=== PATIENT | female | born 1940 | race Caucasian/White ===

== ENCOUNTER 2019-06-23 08:21 | Day surgery (SDC) | payer MEDICARE, OTHER, SELFPAY ==
[2019-06-23] VITALS (7 sets, daily range): BP systolic 134–193; BP diastolic 64–91; PULSE 48–63; RESP 6–17; TEMP 36.2–36.7; O2SAT 96–100; BMI 21.2
[2019-06-23] MEDS: LACTATED RINGERS 1,000 ML 42 ML IV (08:49)
--- NOTE | 2019-06-23 09:41 | PM.HP.1 ---
History of Present Illness History of Present Illness Date Patient Seen: 06/23/19 Time Patient Seen: 09:41 Chief complaint: [id number] Narrative: Patient is a 79-year-old with a right ovarian cyst and endometrial hyperplasia She is here for a laparoscopic bilateral salpingo-oophorectomy, D&C hysteroscopy, IUD placement Patient History Medical History (Updated 06/17/19 @ 15:18 by Lizzy Conteh RN) Glaucoma (Acute) Ovarian cyst (Chronic ~04/2019) Scoliosis (Chronic) Skin cancer, basal cell (Chronic ~11/2011) Surgical History (Updated 05/25/19 @ 21:20 by Harriet Rooney) Anesthesia (Resolved) History of surgery (Resolved ~08/08/18) Laceration of left eyebrow (Resolved) Status post tubal ligation Family & Social History Social History: household members spouse Tobacco & Substance use: Smoking Status Never smoker Substance Use Type does not use Meds Home Medications and Allergies Home Medications Medication Instructions Recorded Confirmed Type lisinopril 20 mg PO QAM #90 tab 11/13/16 06/23/19 Rx latanoprost 0.005 % eye drops 1 drp EYE-BOTH .HS ml 05/22/19 06/23/19 History Allergies Allergy/AdvReac Type Severity Reaction Status Date / Time No Known Allergies Allergy Uncoded 06/23/19 08:39 Exam Vital Signs (past 8 hours): - 06/23/19 08:53 Temperature 97.1 F L Pulse Rate 63 Respiratory Rate 6 L Blood Pressure 193/91 H Pulse Oximetry 100 Oxygen Delivery Method Room Air Narrative Exam Narrative: HEENT: No thyromegaly, no anterior cervical or supraclavicular lymphadenopathy. Lungs:Clear to auscultation bilaterally, no wheezes. Cardiovascular: Regular rate and rhythm, no murmurs, rubs, or gallops. Abdomen: Well-healed scars. No hepatosplenomegaly. No masses palpable. External genitalia: Normal Vagina: Normal Cervix: Normal Bimanual exam: 6 Week size uterus. Mobile. Rectal: No masses. Assessment & Plan Assessment & Plan narrative: Assessment: 79-year-old with a right ovarian cyst and endometrial hyperplasia On unopposed estrogen Plan: Laparoscopic bilateral salpingo-oophorectomy D&C hysteroscopy Kyleena IUD placement for progesterone Time Spent With Patient Time with patient: 15-24 minutes
--- NOTE | 2019-06-23 10:34 | SUR.OPER ---
Lithotomy on padded OR bed, head on pillow, arms secured on padded arm boards at <90 degrees abduction. Legs secured in padded yellow fins stirrups.
--- NOTE | 2019-06-30 07:00 | PM.GYNOP.1 ---
Operative Date/Time/Diagnoses Date of procedure: 06/23/19 Time of procedure: 10:45 Pre-op diagnosis: Right ovarian cyst Endometrial hyperplasia Post-op diagnosis: same Procedure & Clinicians Procedure: Procedures Operation Date: 06/23/19 09:45 Actual Procedures Side Surgeon p Attempted dilation of the cervix Bilateral Glenna Chaudhary MD Indications: Endometrial hyperplasia Right ovarian cyst Surgeon: Glenna Chaudhary Anesthesia Type: General Operative Notes Findings: Vaginal agglutination Cervical stenosis Closure Type: not applicable Specimen(s): none Estimated blood loss (mL): 5 Blood products transfused: none Procedure in detail: After informed consent was obtained, the patient was taken to the operating room where she was placed in the dorsal supine position. After adequate general endotracheal anesthesia was achieved, she was placed in the dorsal lithotomy position, and prepped and draped in the usual sterile fashion. A bivalve speculum was placed into the vagina. There was found to be significant agglutination of the vaginal carcamo near the cervix. The cervix could not be readily identified. An attempt was made to take down the agglutination, but was unsuccessful. A decision was made to abort the procedure, as it was unsafe to attempt to dilate the cervix. The bivalve speculum was removed from the vagina. Sponge, lap, and instrument counts were correct x2. The patient tolerated the procedure well, and was taken to PACU in stable condition. Complications: none Post-operative Disposition: PACU Plan for aftercare: Home after recovery
== END 2019-06-23 12:01 | disposition home or self-care (01) ==
PROVIDERS: PCP Family Medicine; Visit Provider Obstetrics & Gynecology
PROC: 0UT24ZZ Resection of Bilateral Ovaries, Percutaneous Endoscopic Approach (ICD-10-PCS; CPT 58661; principal; 2019-06-23 09:45)
DX: N83.201 Unspecified ovarian cyst, right side (principal); I10 Essential (primary) hypertension; N85.00 Endometrial hyperplasia, unspecified; Z53.09 Procedure and treatment not carried out because of other contraindication; N90.89 Other specified noninflammatory disorders of vulva and perineum
CPT/HCPCS: 58120; J1100; J1885; J2405; J2704; J3010

== ENCOUNTER 2019-08-11 08:11 | Day surgery (SDC) | payer MEDICARE, OTHER, SELFPAY ==
[2019-08-11] VITALS (8 sets, daily range): BP systolic 141–188; BP diastolic 56–86; PULSE 51–69; RESP 10–16; TEMP 36.1–36.6; O2SAT 94–97; BMI 21.1
--- NOTE | 2019-08-11 | PATH_ITS ---
[facility] Accession Number: [id number] . 01 Material submitted: . uterus - UTERUS, BILATERAL FALLOPIAN TUBES AND BILATERAL OVARIES . 02 Diagnosis: Uterus, Bilateral Fallopian Tubes and Bilateral Ovaries, Hysterectomy, Bilateral Salpingo-oophorectomy: 1. Benign endometrial polyp. 2. One fallopian tube with endosalpingiosis. 3. Uterus, bilateral fallopian tubes and bilateral ovaries with no evidence of neoplasia or hyperplasia. V 08/13/2019 1445 Local . 02 Electronically signed: . Gregoria Wilson MD, Pathologist NPI- [id number] . 01 Gross description: . Received in formalin, labeled uterus, jessica tubes + jessica ovaries, is a morcellated uterus (84 grams, 12.3 x 8.5 x 5.0 cm in aggregate), two ovaries (ovary #1-2.0 x 1.5 x 0.5 cm; ovary #2-2.3 x 1.4 x 0.5 cm), and two fimbriated fallopian tubes (tube #1: length-2.2 cm, diameter-0.3 cm; tube #2: length-2.7 cm, diameter-0.4 cm). The cervix is absent. The specimen cannot be oriented and the endometrium and myometrium cannot be grossly measured. An irregular srinivasan-white thickened rubbery irregular area (1.0 x 0.7 x 0.3 cm) is identified apparently involving the endometrium. The remaining parenchyma is alexander and unremarkable. The serosa is alexander, smooth and shiny. The ovaries have alexander-yellow, smooth, shiny flat serosa and alexander-white parenchyma with corpus albicans identified. The fallopian tubes have alexander smooth shiny serosa and alexander unremarkable lumens. Section code: (A1-A4) uterine parenchyma, irregular area entirely submitted in cassette A1; (A5) ovary #1, customer account representative serial sections; (A6) ovary #2, customer account representative serial sections; (A7) fallopian tube #1, serially sectioned, entirely submitted; (A8) fimbria #1, submitted intact; (A9) fallopian tube #2, customer account representative serial sections; (A10) fimbria #2, bivalved, entirely submitted. ([id number]) /MRV 08/12/2019 1313 Local . 02 Pathologist provided ICD-10: N84.0 . 02 CPT . 659697 Performed at: 01 [facility] [address] [facility], [place], [place] [id number] MD Shane Trammell MD Phone: [phone] Performed at: 02 [facility] [address] [place], [place] [id number] MD Gregoria Wilson MD Phone: [phone]
[2019-08-11] MEDS: LACTATED RINGERS 1,000 ML 100 ML IV (08:47)
--- NOTE | 2019-08-11 09:17 | PM.PREOP ---
Pre-operative Note Interval Note History & Physical reviewed/Exam performed by Physician: Yes Changes to H&P: No
[2019-08-11] MEDS: CEFAZOLIN 2 GM/100 ML FROZ.PIGGY IV (09:45)
--- NOTE | 2019-08-11 10:25 | SUR.OPER ---
Lithotomy on padded OR bed. Island Pad Positioner under torso. Head on pillow, arms padded and tucked at sides. Legs secured in padded yellow fins stirrups.
[2019-08-11] MEDS: ROPIVACAINE 0.2% PF 2 MG/ML 10ML AMP 10 ML INJ (10:42)
[2019-08-11] MEDS: BUPIVACAINE 0.5% W/ EPI (PF) 10 ML VIAL INJ (10:44)
--- NOTE | 2019-08-11 13:10 | SUR.PHASEII ---
3 out of 4 puncture sites with increased drainage noted. Dressing removed gauze placed and sites covered with new tegaderms
--- NOTE | 2019-08-11 18:38 | P.OP_ITS ---
Operative Date/Time/Diagnoses Date of procedure: 08/11/19 Time of procedure: 11:00 Pre-op diagnosis: Endometrial thickening Cervical stenosis Unable to sample endometrium in the office or with D&C hysteroscopy Post-op diagnosis: same Procedure & Clinicians Procedure: Procedures Operation Date: 08/11/19 09:45 Actual Procedures Side Surgeon p Laparoscopic Supracervical Hysterectomy W/ Bilateral Salpingo-oophorectomy Glenna Chaudhary MD Indications: Endometrial thickening Cervical stenosis Unable to sample endometrium in the office or at D&C hysteroscopy Surgeon: Glenna Chaudhary Delivery Room Supervisor: Hazel Cid Anesthesia Type: General Operative Notes Findings: Five week size uterus Cervical stenosis Normal tubes and ovaries Normal liver, gallbladder, and appendix Closure Type: primary Specimen(s): left tube & ovary, right tube & ovary and uterus Applied: catheter (Removed at the end of the case) Estimated blood loss (mL): 50 Blood products transfused: none Procedure in detail: The patient was taken to the operating room where she was placed in the dorsal supine position. After adequate general endotracheal anesthesia was achieved, she was placed in the dorsal lithotomy position, and prepped and draped in the usual sterile fashion. A timeout was performed. A bivalve speculum was placed into the vagina. The cervix was very stenotic and the os was not visualized. A decision was made to put a moistened sponge stick into the vagina and skip the Zumi uterine manipulator. The bivalve speculum was removed from the vagina. Attention was then turned to the abdomen where 6 mL of half percent Marcaine with epinephrine were injected in the umbilical fold. A 5 mm incision was made. The veress needle was placed into the peritoneal cavity, and its placement confirmed by aspiration and drop test. The veress needle was removed. A 5 mm trocar was placed without difficulty. 2 other incisions were made midway between the pubic symphysis and umbilicus after 5 mL of half percent Marcaine with epinephrine were injected. These were 5 mm incisions. Two, 5 mm trocars were placed under direct visualization. The right tube and ovary were grasped with an atraumatic grasper. Using the plasma kinetic with settings of 40 W the infundibulopelvic ligament was cauterized and cut. The cornua of the uterus was then grasped with an atraumatic grasper. The utero-ovarian ligaments were cauterized and cut. The round ligament and broad ligament were cauterized and cut with plasma kinetic. Hemostasis was achieved. The bladder flap was created using the plasma kinetic with cautery and cut [facility] across. The uterine arteries on the right side were extensively cauterized with plasma kinetic. All of this was repeated on the left side. The remainder of the bladder flap was created using the plasma kinetic, and the bladder taken down off the lower uterine segment and cervix. Using the Linaloop, the cervix was amputated from the uterus 2 cm above the uterosacral ligaments. There was a small amount of bleeding noted from the posterior edge of the cervix, and this was cauterized for hemostasis. The endocervical canal was extensively cauterized with the PlasmaKinetic. 6 mL of half percent Marcaine with epinephrine were injected above the pubic symphysis. A 12mm incision was made. A 12 mm trocar was placed under direct visualization. The trocar was removed. The fascial incision was extended bluntly with a Rahul. An Endobag was placed through the suprapubic incision and the uterus, tubes, and ovaries were placed into the Endobag. The edges of the endobag were brought through the incision. An Lobo was placed into the endobag. The uterus was grasped with a Rahul. The uterus was morcellated in approximately 5 pieces. The tubes and ovaries were also removed from the Endobag. The Endobag was removed from the peritoneal cavity. The pelvis was copiously irrigated with warm normal saline. No bleeding was noted. 20 mL of 0.2% ropivacaine were placed over the pelvic pedicles. The instruments were removed from the abdomen. The CO2 was allowed to escape. The suprapubic incision was closed on the fascia with 0 Vicryl. All of the incisions were closed with 4-0 Biosyn in a subcuticular fashion. Steri strips, 2x2's and op sites were placed over the incisions. The moistened sponge stick was removed from the vagina. Sponge, lap, and instrument counts were correct x 2. The patient tolerated the procedure well, was taken to PACU in stable condition. Complications: none Post-operative Condition: stable Disposition: PACU Plan for aftercare: Home after recovery
== END 2019-08-11 12:50 | disposition home or self-care (01) ==
LOC: OR 08:13 → AC 11:38
PROVIDERS: PCP Family Medicine; Visit Provider Obstetrics & Gynecology
PROC: 0UT94ZL Resection of Uterus, Supracervical, Percutaneous Endoscopic Approach (ICD-10-PCS; CPT 58542; principal; 2019-08-11 09:45)
DX: N84.0 Polyp of corpus uteri (principal); N88.2 Stricture and stenosis of cervix uteri; I10 Essential (primary) hypertension; N94.89 Other specified conditions associated with female genital organs and menstrual cycle
CPT/HCPCS: 58542; J0690; J1100; J1885; J2405; J2704; J2795; J3010

== ENCOUNTER → 2021-05-27 12:48 | Outpatient (CLI) | payer MEDICARE, OTHER, SELFPAY ==
[2021-05-27 18:45] LABS: Eosinophils Absolute Auto 200 /uL (0-450); Mean Corpuscular Hemoglobin 21.7 PG (26-34)
[2021-05-27 18:54] LABS: Alanine Aminotransferase 19 IU/L (<35); Albumin 4.6 g/dL (3.5-5.0); Albumin Globulin Ratio 1.5 (1.0-2.8); Alkaline Phosphatase 81 U/L (38-126); Aspartate Aminotransferase 33 IU/L (14-36); BUN Creatinine Ratio 23.1 (6-22); Bilirubin Total 0.4 mg/dL (0.2-1.3); Blood Urea Nitrogen 15 mg/dL (7-17); Calcium 9.7 mg/dL (8.4-10.2); Carbon Dioxide 31 mmol/L (22-32); Chloride 94 mmol/L (98-107); Estimated Glomerular Filt Rate > 60.0 mL/min (>60); Glucose 92 mg/dL (80-110); HEMOLYSIS < 15 (0-50); Sodium 132 mmol/L (137-145); Total Protein 7.6 g/dL (6.3-8.2)
[2021-05-27 19:12] LABS: Add Manual Diff / Slide Review NO; Basophils Absolute Auto 200 /uL (0-100); Basophils Percent Auto 2.1 % (0-2); Eosinophils Percent Auto 2.1 % (2-4); Lymphocytes Absolute Auto 1600 /uL (1100-4500); Mean Corpuscular HGB Conc 32.6 % (30-36); Mean Corpuscular Volume 66.4 fL (80-100); Monocytes Absolute Auto 1100 /uL (0-900); Monocytes Percent Auto 13.6 % (3-14); Neutrophils Absolute Auto 4900 /uL (1500-7000); Neutrophils Percent Auto 62.2 % (50-75); Platelet Count 269 X10^3/uL (150-400); Red Blood Cell Count 6.02 X10^6/uL (4.0-5.2); Red Cell Distribution Width 15.6 % (11.6-14.8); White Blood Cell Count 7.8 X10^3/uL (4.5-11.0)
[2021-05-27 19:19] LABS: TSH w/ Reflex to FT4 2.17 uIU/mL (0.47-4.68)
[2021-05-27 19:36] LABS: Hypochromasia 2+
[2021-05-27 19:37] LABS: Anisocytosis 2+
== END ==
PROVIDERS: PCP Family Medicine; Visit Provider Family Medicine
DX: I10 Essential (primary) hypertension (principal); R53.81 Other malaise
CPT/HCPCS: 80053; 84443; 85025

== ENCOUNTER → 2021-08-26 08:30 | Outpatient (CLI) | payer MEDICARE, OTHER, SELFPAY ==
[2021-08-26 18:53] LABS: Sodium Urine Random 81 mmol/L (30-90)
[2021-08-26 18:56] LABS: Blood Urea Nitrogen 17 mg/dL (7-17); Calcium 9.8 mg/dL (8.4-10.2); Carbon Dioxide 32 mmol/L (22-32); Chloride 98 mmol/L (98-107); Estimated Glomerular Filt Rate > 60.0 mL/min (>60); Glucose 100 mg/dL (80-110); HEMOLYSIS < 15 (0-50); Sodium 132 mmol/L (137-145)
[2021-08-29 16:33] LABS: Osmolality Urine 426 mOsmol/kg (.)
== END ==
PROVIDERS: PCP Family Medicine; Visit Provider Physician Assistant
DX: E87.1 Hypo-osmolality and hyponatremia (principal)
CPT/HCPCS: 80048; 83935; 84300

== ENCOUNTER → 2021-11-29 07:57 | Outpatient (CLI) | payer MEDICARE, OTHER, SELFPAY ==
[2021-11-29 19:07] LABS: Add Manual Diff / Slide Review NO; Basophils Absolute Auto 100 /uL (0-100); Basophils Percent Auto 1.2 % (0-2); Eosinophils Absolute Auto 200 /uL (0-450); Eosinophils Percent Auto 3.1 % (2-4); Hematocrit 37.7 % (36-46); Hemoglobin 12.4 g/dL (12.0-16.0); Lymphocytes Absolute Auto 1100 /uL (1100-4500); Lymphocytes Percent Auto 20.3 % (25-40); Mean Corpuscular HGB Conc 32.8 % (30-36); Mean Corpuscular Hemoglobin 21.7 PG (26-34); Mean Corpuscular Volume 66.3 fL (80-100); Monocytes Absolute Auto 700 /uL (0-900); Monocytes Percent Auto 13.3 % (3-14); Neutrophils Absolute Auto 3300 /uL (1500-7000); Neutrophils Percent Auto 62.1 % (50-75); Platelet Count 324 X10^3/uL (150-400); Red Blood Cell Count 5.69 X10^6/uL (4.0-5.2); Red Cell Distribution Width 15.4 % (11.6-14.8); White Blood Cell Count 5.2 X10^3/uL (4.5-11.0)
[2021-11-29 19:14] LABS: Alanine Aminotransferase 20 IU/L (<35); Albumin 4.5 g/dL (3.5-5.0); Albumin Globulin Ratio 1.5 (1.0-2.8); Alkaline Phosphatase 74 U/L (38-126); Aspartate Aminotransferase 33 IU/L (14-36); BUN Creatinine Ratio 22.7 (6-22); Bilirubin Total 0.4 mg/dL (0.2-1.3); Blood Urea Nitrogen 15 mg/dL (7-17); Calcium 9.2 mg/dL (8.4-10.2); Carbon Dioxide 30 mmol/L (22-32); Chloride 99 mmol/L (98-107); Cholesterol 232 mg/dL (140-199); Estimated Glomerular Filt Rate > 60 mL/min (>60); Glucose 101 mg/dL (80-110); HDL Cholesterol 80 mg/dL (40-60); HEMOLYSIS < 15 (0-50); LDL Cholesterol Calculated 128 mg/dL (<100); Potassium 4.6 mmol/L (3.4-5.1); Sodium 135 mmol/L (137-145); Total Protein 7.5 g/dL (6.3-8.2); Triglycerides 121 mg/dL (35-150)
[2021-11-29 19:53] LABS: Anisocytosis 2+; Target Cells 1+
[2021-11-29 19:54] LABS: Hypochromasia 2+; Microcytosis 1+
== END ==
PROVIDERS: PCP Family Medicine; Visit Provider Physician Assistant
DX: Z79.899 Other long term (current) drug therapy (principal); Z48.89 Encounter for other specified surgical aftercare; E78.5 Hyperlipidemia, unspecified; E87.1 Hypo-osmolality and hyponatremia; I10 Essential (primary) hypertension; R79.89 Other specified abnormal findings of blood chemistry
CPT/HCPCS: 80053; 80061; 85025

== ENCOUNTER → 2021-12-14 09:15 | Outpatient (CLI) | payer MEDICARE, OTHER, SELFPAY ==
[2021-12-14 18:44] LABS: BUN Creatinine Ratio 22.7 (6-22); Blood Urea Nitrogen 17 mg/dL (7-17); Calcium 9.2 mg/dL (8.4-10.2); Carbon Dioxide 29 mmol/L (22-32); Chloride 95 mmol/L (98-107); Estimated Glomerular Filt Rate > 60 mL/min (>60); Glucose 83 mg/dL (80-110); HEMOLYSIS 16 (0-50); Potassium 4.6 mmol/L (3.4-5.1); Sodium 131 mmol/L (137-145)
[2021-12-14 18:53] LABS: HEMOLYSIS < 15 (0-50); Iron 125 ug/dL (37-170)
[2021-12-14 19:03] LABS: Percent Iron Saturation 44 % (15-50); Total Iron Binding Capacity 287 ug/dL (265-497); Transferrin 219 mg/dL (206-381)
[2021-12-14 19:20] LABS: Ferritin 118 ng/mL (11-264)
== END ==
PROVIDERS: PCP Physician Assistant; Visit Provider Physician Assistant
DX: R79.89 Other specified abnormal findings of blood chemistry (principal); E87.1 Hypo-osmolality and hyponatremia; I10 Essential (primary) hypertension; M54.42 Lumbago with sciatica, left side
CPT/HCPCS: 80048; 82728; 83021; 83540; 83550; 85014; 85018; 85041

== ENCOUNTER → 2022-01-12 09:02 | Outpatient (CLI) | payer MEDICARE, OTHER, SELFPAY ==
[2022-01-12 18:42] LABS: BUN Creatinine Ratio 27.4 (6-22); Blood Urea Nitrogen 17 mg/dL (7-17); Calcium 9.3 mg/dL (8.4-10.2); Carbon Dioxide 28 mmol/L (22-32); Chloride 97 mmol/L (98-107); Estimated Glomerular Filt Rate > 60 mL/min (>60); Glucose 92 mg/dL (80-110); HEMOLYSIS < 15 (0-50); Potassium 4.9 mmol/L (3.4-5.1); Sodium 132 mmol/L (137-145)
== END ==
PROVIDERS: PCP Physician Assistant; Visit Provider Physician Assistant
DX: E87.1 Hypo-osmolality and hyponatremia (principal)
CPT/HCPCS: 80048

== ENCOUNTER → 2022-05-12 14:36 | Outpatient (CLI) | payer MEDICARE, OTHER, SELFPAY ==
--- NOTE | 2022-05-12 14:39 | DI.US.S_ITS ---
LIMITED ULTRASOUND OF LEFT BREAST: 05/12/2022 CLINICAL: Post left breast ultrasound biopsy, clip placement imaging. Comparison is made to exams dated: 04/25/2022 ultrasound biopsy, 04/25/2022 mammogram, 04/13/2022 ultrasound, 04/13/2022 mammogram, 03/28/2022 mammogram, and 03/08/2021 mammogram - [facility]. Color flow ultrasound of the left breast 3 o'clock region was performed. Moore scale images of the real-time examination were reviewed. There is a benign 3.3 cm x 1.8 cm x 1.3 cm fluid collection in the left breast at 3 o'clock posterior depth 6 cm from the nipple. This fluid collection is hypoechoic. This correlates with the previous biopsy. IMPRESSION: KNOWN BIOPSY PROVEN MALIGNANCY The biopsy clip and the biopsy-proven malignant mass are not well visualized sonographically due to the presence of a small hematoma. Recommend mammographic guidance for clip localization. This exam was interpreted at Station ID: [id number]. Electronically Signed By: Prince Renner M.D. ar/:05/12/2022 16:32:57 copy to: Ivon Franks Ultrasound BI-RADS: 6 Known biopsy proven malignancy
== END ==
PROVIDERS: PCP Physician Assistant; Referring Provider Surgery; Visit Provider Surgery
DX: C50.912 Malignant neoplasm of unspecified site of left female breast (principal); S20.02XA Contusion of left breast, initial encounter
CPT/HCPCS: 76642

== ENCOUNTER → 2022-05-15 15:04 | Outpatient (CLI) | payer MEDICARE, OTHER, SELFPAY ==
[2022-05-15 17:27] LABS: COVID19 -Nasal RAPID Negative (Negative)
== END ==
PROVIDERS: PCP Physician Assistant; Visit Provider Surgery
DX: Z20.822 Contact with and (suspected) exposure to COVID-19 (principal); Z01.812 Encounter for preprocedural laboratory examination
CPT/HCPCS: 87635; C9803

== ENCOUNTER → 2022-05-16 06:50 | Outpatient (CLI) | payer MEDICARE, OTHER, SELFPAY | PROVIDERS: PCP Physician Assistant; Referring Provider Surgery; Visit Provider Surgery | DX: D05.12 Intraductal carcinoma in situ of left breast (principal) ==

== ENCOUNTER 2022-05-16 07:06 | Day surgery (SDC) | payer MEDICARE, OTHER, SELFPAY ==
[2022-05-12 12:14] VITALS: BMI 22.4
[2022-05-16] VITALS (7 sets, daily range): BP systolic 145–188; BP diastolic 67–88; PULSE 72–86; RESP 12–18; TEMP 36.2–37.1; O2SAT 94–98; BMI 22.1
--- NOTE | 2022-05-16 | DI.MG.S_ITS ---
SPECIMEN: 05/16/2022 CLINICAL: Left breast specimen. Correlation is made to exams dated: 05/16/2022 localization - [facility], 04/25/2022 mammogram, and 04/13/2022 mammogram - [facility]. The localization wire is present within the surgical speciman. The targeted biopsy clip is not seen. IMPRESSION: SPECIMEN The localization wire is present. The targeted biopsy clip is not seen. The result was discussed with Dr. Alejandra in OR. This exam was interpreted at Station ID: [id number]. Caity Ansari M.D. fx/:05/16/2022 16:10:30 copy to: Ivon Franks
--- NOTE | 2022-05-16 | PATH_ITS ---
[facility] Accession Number: [id number] . 01 Material submitted: . PART A: breast - LEFT BREAST TISSUE PART B: breast - ADDITIONAL LEFT BREAST TISSUE PART C: breast - ADDITIONAL LEFT BREAST TISSUE-INFEROLATERAL BORDER PART D: breast - ADDITIONAL LEFT BREAST TISSUE-INFEROLATERAL DEEP MARGIN PART E: breast - ADDITIONAL LEFT BREAST TISSUE-INFEROLATERAL BIOPSY PART F: breast - ADDITIONAL LEFT BREAST TISSUE-ANTERIOR LATERAL PART G: breast - ADDITIONAL LEFT BREAST TISSUE-INFEROMEDIAL WITH STITCH . 01 Clinical history: . A: LEFT BREAST TISSUE- (YELLOW IS DEEP, RED IS LATERAL, GREEN IS SUPERIOR, BLUE IS INFERIOR, ORANGE IS MEDIAL, BLACK IS B: ADDITIONAL LEFT BREAST TISSUE-(RED IS LATERAL) C: ADDITIONAL LEFT BREAST TISSUE-INFEROLATERAL BORDER (ORANGE IS POSTERIOR, BLUE IS LATERAL, BLACK IS SUPERIOR, YELLOW IS D: ADDITIONAL LEFT BREAST TISSUE, INFEROLATERAL DEEP MARGIN (YELLOW IS ANTERIOR, GREEN IS INFERIOR, RED IS DEEP E: ADDITIONAL LEFT BREAST TISSUE-INFEROLATREAL BIOPSY (YELLOW IS ANTERIOR, BLUE IS INFERIOR, RED IS LATERAL, GREEN IS F: ADDITIONAL LEFT BREAST TISSUE-ANTERIOR LATERAL (BLUE IS LATERAL, BLACK IS INFERIOR, RED IS ANTERIOR, ORANGE IS G: ADDITIONAL LEFT BREAST TISSUE-INFEROMEDIAL WITH STITCH (BLACK IS ANTERIOR, BLUE IS INFERIOR, RED IS MEDIAL, ORANGE . 01 Diagnosis: A. 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 Architectural pattern: Solid and papillary. 2. Nuclear grade: Intermediate. 3. Necrosis: Not identified. 4. Extent of SPC in situ: Present on more than one slide (five slides involved) corresponding to tissue slices 3-6, and 8, spanning approximately 16 mm. 5. Calcifications: Present in association with benign breast tissue and media of vessels. 6. Resection margins: Negative with the following closest distances to the margins: - Anterior: Less than 0.55 mm (block A8), 0.5 mm (A6 and A10) - Inferior: 0.7 mm (A10) - Infero-deep: 1.8 mm (A6) - Anterolateral: 1.8 mm (A11) - Remaining margins: 2 mm or more. 7. Prognostic markers repeated on this excision: - Estrogen receptor status: Positive (more than 99% tumor cells staining, strong intensity). 8. Nipple and skin are not present for evaluation. 9. Regional lymph node status: No lymph nodes submitted or found in the specimen. 10. Other findings: Biopsy site changes are present, in a background of columnar cell change/columnar cell hyperplasia, microcysts and microcystic duct dilatation, and usual ductal hyperplasia. 11. Pathologic stage: pTis (SEE COMMENT). . B. Additional Left Breast Tissue, Excision: SPC in situ is present, measures 2.3 mm in largest extent, is less than 0.5 mm from the lateral margin (B2), and 2 mm or more from the remaining margins. Biopsy site changes are present. . C. Additional Left Breast Tissue, Inferiolateral Border, Excision: Benign breast parenchyma with biopsy site changes. . D. Additional Left Breast Tissue, Inferiolateral Deep Margin, Excision: Fibrofatty benign breast parenchyma with fat necrosis. . E. Additional Left Breast Tissue, Inferiolateral Biopsy/Excision: SPC in situ is present, measures 1.1 mm in largest extent, is less than 0.55 mm from superior margin (E1), and 2 mm or more from the remaining margins. . F. Additional Left Breast Tissue, Anteriolateral Margin, Excision: SPC in situ is present, with the largest linear span of 18 mm, and the following closest distances to margins: - Supero-posterior junction: At ink/positive (F3), 0.5 mm (F4). - Medial: At ink/positive (F4), Less than 0.55 mm (F5,F6), 1.8 mm (F3). - Inferior: Less than 0.55 mm (F6). - Lateral: Less than 0.55 mm (F2, F5), 1.8 mm (F3). - Superior: 0.5 mm (F1), 1.9 mm (F3). - Anterior: 0.8 mm (F2) - Posterior: 1.1 mm (F4). . G. Additional Left Breast Tissue, Inferiomedial Margin, Excision: Benign breast parenchyma. . 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 The in situ neoplastic lesion consists of circumscribed nodules composed of a uniform population of ovoid- to spindle-shaped epithelial cells growing in solid pattern within which a network of inconspicuous fibrovascular cores is seen, around which the cells polarize and show fenestrations, and which also grow in pagetoid spread within the ducts. The cells have granular focally eosinophilic cytoplasm and fine nuclear chromatin (endocrine-like). There is focally, extracellular mucin. 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 . Focally, there are ragged edges and irregular borders, raising the possibility of focally invasive carcinoma; however, all of these foci (A6, A8 and A10) are in close proximity to biopsy site changes (often in association with hemosiderin-laden macrophages), and show at least partial retention of myoepithelial markers; these foci are interpreted as artifactual rather than true invasive carcinoma. MRV 05/25/2022 1106 Local . 01 Electronically signed: . Ayla Childs MD, Pathologist NPI- [id number] . 01 Gross description: . Each part is inked by the surgeon using different inking schemes. Please see attached sheet of paper for inking schemes taken from the containers. . A. Received: In formalin, labeled with the patient's name and left breast tissue. Specimen: Left lumpectomy. Weight: 14 grams. Measurement: 1.4 cm anterior to posterior, 3.7 cm medial to lateral, and 3.6 cm superior to inferior. Skin Ellipse: Absent. Wire: Present, entering medially and exiting anterolaterally. Margins: Inked by surgeon as follows: Yellow deep, red lateral, green superior, blue inferior, orange medial, and black anterior. The ink is reinforced at the grossing bench. Sliced: From approximate medial to lateral into nine 3 mm slices (ink is not squarely on edges or faces). Lesions: One. Lesion #1: Description: Moore-alexander, firm, ill-defined lesion. Size: 1.6 x 1.4 x 0.9 cm. Slices Involved: 3 through 7. Biopsy Site: Possible biopsy site cavity identified in slices 1-3, but no clip is identified. Distance To Margins: Less than 0.1 cm from the black anterior margin, 0.4 cm from the blue inferior margin, 0.1 cm from the green superior margin, 0.3 cm from the red lateral margin, and greater than 0.5 cm from all remaining margins. Other: The remaining cut surfaces are yellow to alexander fibroadipose tissue with fibrous tissue occupying approximately 10% of the cut surface. No additional discrete masses or lesions are grossly identified. Fixation Time: Removed on 05/16/2022; collection time unknown; cold ischemic time cannot be calculated; and total fixation time is approximately 48 hours. Submitted entirely as follows: A1-A3: Entire slice 1, lateral margin perpendicular. A4: Entire slice 2 to include black, green, orange and blue margins. A5-A6: Entire composite slice 3 to include green, yellow, black, and blue margins. A7-A8: Entire composite slice 4 to include yellow, green, black, and blue margins. A9-A10: Entire composite slice 5 to include green, yellow, blue, and black margins. A11: Entire slice 6 to include yellow, blue, green, black, and red margins. A12: Entire slice 7 to include yellow, blue, green, and red margins. A13: Entire slice 8 to include yellow, blue, green, black, and red margins. A14-A15: Entire slice 9, lateral margin perpendicular. . B. Received: In formalin, labeled with the patient's name and additional left breast tissue. Specimen: Left fragment of breast. Weight: Less than 1 gram. Measurement: 2.1 x 0.8 x 0.3 cm. Skin Ellipse: Absent. Wire: Absent. Margins: Inked by surgeon as follows: Lateral margin red. The opposite surface is inked black at the bench. Sliced: Perpendicular to the lateral surface and longest axis into five 3 mm slices. Lesions: No discrete lesions or biopsy site identified. Other: The remaining cut surfaces are yellow to alexander with less than 10% fibrous tissue. No discrete masses or lesions are grossly identified. Fixation Time: Removed on 05/16/2022; collection time unknown; cold ischemic time cannot be calculated; and total fixation time is approximately 48 hours. Submitted entirely and sequentially in cassettes B1-B2. . C. Received: In formalin, labeled with the patient's name and additional left breast tissue - inferior/lateral border. Specimen: Left breast new margin. Weight: 4 grams. Measurement: 1.2 cm anterior to posterior, 3.4 cm medial to lateral, and 2.1 cm superior to inferior. Skin Ellipse: Absent. Wire: Absent. Margins: Inked by surgeon as follows: [place] posterior, blue lateral, black superior, yellow medial, green inferior, and red anterior. Ink is reinforced at the bench. *The scheme differs from other parts. Sliced: From approximate medial to lateral into six 3 mm slices (ink is not squarely on edges or faces). Lesions: No lesions or biopsy sites are grossly identified. Other: The remaining cut surfaces are yellow to alexander fibroadipose tissue with fibrous tissue occupying less than 10% of the cut surface. No discrete masses or lesions are grossly identified. Fixation Time: Removed on 05/16/2022; collection time unknown; cold ischemic time cannot be calculated; and total fixation time is approximately 48 hours. Submitted entirely as follows: C1-C2: Entire slice 1, medial margin perpendicular. C3: Entire slice 2 to include orange, green, red, and black margins. C4: Entire slice 3 to include orange, green, red, and black margins. C5: Entire slice 4 to include orange, green, red, and black margins. C6: Entire slice 5 to include orange, green, red, and black margins. C7-C8: Entire slice 6, lateral margin perpendicular. . D. Received: In formalin, labeled with the patient's name and additional left breast tissue - inferior lateral deep margin. Specimen: Left breast new margin. Weight: 5 grams. Measurement: 0.8 cm anterior to posterior, 4.0 cm medial to lateral, 2.3 cm superior to inferior. Skin Ellipse: Absent. Wire: Absent. Margins: Inked by the surgeon as follows: Yellow anterior, green inferior, red deep posterior, orange medial, blue lateral, and black superior. Ink is reinforced at the bench. *Note: This scheme differs from other parts. Sliced: From medial to lateral into eight 3 mm slices. Lesions: No lesions or biopsy site are grossly identified. Other: The remaining cut surfaces are yellow to an fibroadipose tissue with fibrous tissue occupying approximately 10% of the cut surface. No discrete masses or lesions are grossly identified. Fixation Time: Removed on 05/16/2022; collection time unknown; cold ischemic time cannot be calculated; and total fixation time is approximately 48 hours. Submitted entirely as follows: D1: Entire slice 1, medial margin perpendicular. D2: Entire slice 2 to include yellow, green, black, and red margins. D3: Entire slice 3 to include yellow, green, black, and red margins. D4: Entire slice 4 to include yellow, green, black, and red margins. D5: Entire slice 5 to include yellow, green, black, and red margins. D6: Entire slice 6 to include yellow, green, black, and red margins. D7: Entire slice 7 to include red, green, black, and blue margins. D8: Entire slice 8, lateral margin perpendicular. . E. Received: In formation, labeled with the patient's name and additional left breast tissue - inferior lateral biopsy. Specimen: Left breast new margins. Weight: 11 grams. Measurement: 3.3 cm anterior to posterior, 1.5 cm medial to lateral, and 3.3 cm superior to inferior. Skin Ellipse: Absent. Wire: Absent. Margins: Inked by surgeon as follows: Yellow anterior, blue inferior, red lateral, green medial, black posterior, orange superior. Ink is reinforced at bench. *This scheme differs from other parts. Sliced: From approximate superior to inferior into seven 3 mm slices (ink is not squarely on edges or faces). Lesions: One. Lesion #1: Description: Moore-alexander, firm, ill-defined lesion. Size: 0.4 x 0.3 x 0.3 cm. Slices Involved: Slice 3. Biopsy Site: Not identified. Distance To Margins: 0.3 cm from the green medial margin, greater than 0.5 cm from all remaining margins. Other: The remaining cut surfaces are yellow to alexander fibroadipose tissue with fibrous tissue occupying less than 10% of the cut surface. No additional discrete masses or lesions are grossly identified. Fixation Time: Removed on 05/16/2022; collection time unknown; cold ischemic time cannot be calculated; and total fixation time is approximately 48 hours. Submitted entirely as follows: E1-E2: Entire slice 1, superior margin perpendicular. E3-E4: Composite entire slice 2 to include red, yellow, green, and black margins. E5-E6: Composite entire slice 3 to include red, yellow, green, and black margins (lesion in E5). E7-E8: Composite entire slice4 to include red, yellow, green, and black margins. E9-E10: Composite entire slice 5 to include red, yellow, green, and black margins. E11-E12: Composite entire slice 6 to include red, yellow, green, and black margins. E13-E14: Entire slice 7, inferior margin perpendicular. . F. Received: In formalin, labeled with the patient's name and additional left breast tissue - anterior lateral. Specimen: Left breast new margins. Weight: 6 grams. Measurement: 2.2 cm anterior to posterior, 1.8 cm medial to lateral, 2.5 cm superior to inferior. Skin Ellipse: Absent. Wire: Absent. Margins: Inked by surgeon as follows: Blue lateral, black inferior, red anterior, orange medial, yellow posterior, green superior. Ink is reinforced at the bench. *Note: This scheme differs from other parts. Sliced: From approximate superior to inferior into five 3 mm slices (ink is no squarely on edges or faces). Lesions: No lesions or biopsy site identified. Other: The remaining cut surfaces are yellow to alexander fibroadipose tissue with fibrous tissue occupying approximately 15% of the cut surface. No discrete masses or lesions are grossly identified. Fixation Time: Removed on 05/16/2022; collection time unknown; cold ischemic time cannot be calculated; and total fixation time is approximately 48 hours. Submitted entirely as follows: F1-F2: Entire slice 1, superior margin perpendicular. F3: Entire slice 2 to include yellow, blue, red, and orange margins. F4: Entire slice 3 to include blue, yellow, orange, and red margins. F5: Entire slice 4 to include blue, yellow, orange, and black margins. F6: Entire slice 5, inferior margin perpendicular. . G. Received: In formalin, labeled with the patient's name and additional left breast tissue - inferior medial with stitch. Specimen: Left breast new margins. Weight: 11 grams. Measurement: 2.1 cm anterior to posterior, 3.2 cm medial to lateral, 3.7 cm superior to inferior. Skin Ellipse: Absent. Wire: Absent. Margins: Inked by surgeon as follows: Black anterior, blue inferior, red medial, orange lateral, yellow posterior, green superior. Inked is reinforced at bench. A long double suture is identified attached adjacent to the red medial and black anterior margins with no designation per the container or requisition. * Note: The scheme differs from other parts. Sliced: From superior to inferior into seven 3 mm slices. Lesions: No lesions or biopsy site are grossly identified. Other: The remaining cut surfaces are yellow to alexander fibroadipose tissue with fibrous tissue occupying 10% of the cut surface. No discrete masses or lesions are grossly identified. Fixation Time: Removed on 05/16/2022; collection time unknown; cold ischemic time cannot be calculated; and total fixation time is approximately 48 hours. Submitted entirely as follows: G1-G2: Entire slice 1, superior margin perpendicular. G3: Entire slice 2 to include yellow, red, orange, and black margins. G4: Entire slice 3 to include yellow, red, orange, and black margins. G5: Entire slice 4 to include yellow, red, orange, and black margins. G6: Entire slice 5 to include yellow, red, orange, and black margins. G7: Entire slice 6 to include yellow, orange, red, and black margins. C8-G9: Entire slice 7, inferior margin perpendicular. ([id number]) /MRV 05/17/2022 1408 Local . 01 Microscopic: . P63 and smooth muscle myosin are performed on blocks A6, A8, A10, B2, and F1, in order to evaluate the areas of intraductal proliferation. 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 . CK5/6 and ER are performed on blocks A10, F1-F6, in order to evaluate pagetoid spread of apparent neoplasia close to the margins. The carcinoma in situ demonstrates loss of CK5/6 and overexpression of ER in areas of interest, aiding in evaluation of neoplasia close to or at margins. . Synaptophysin and chromogranin are performed on block A10 in order to evaluate the SPC in situ and are both negative. Their absence does not exclude SPC in situ. . Predictive marker immunohistochemical studies are performed on block A10 with the invasive carcinoma showing the following results: . Estrogen receptor (SP1): Positive (99%, Strong intensity). . The scoring criteria for breast biomarkers by immunohistochemistry is based on the ASCO/CAP guidelines (Ethel AC et al, J Clin Oncol: 2017Feb 12;36(20):4629-2512 and Bill HANEY et al, Arch Pathol Lab Med: 2009;134(6):907-22). Deparaffinized sections of formalin fixed tissue (along with appropriate positive controls) are incubated with the above antibody(s). Using the automated Armour stainer, tissue is incubated with the designated antibody which is then localized by a non-biotin, dual polymer detection system. The external controls are reviewed for appropriate reactivity and found to be adequate. Results on the target cell population are indicated above. These tests have not been validated on decalcified tissue. This test was developed and its performance characteristics determined by [facility]. It has not been cleared or approved by the U.S. Food and Drug Administration. The FDA has determined that such clearance or approval is not necessary. This test is used for clinical purposes. It should not be regarded as investigational or for research. . 01 Pathologist provided ICD-10: D05.12 . 01 CPT . 189007, 871385, 036478, 231991, 486807, 572350, 049440, [id number], [id number] Performed at: 01 [facility] [address] [place] [address], [place], [place] [id number] MD Shane Trammell MD Phone: [phone]
--- NOTE | 2022-05-16 | DI.MG.S_ITS ---
DIGITAL MAMMOGRAPHY GUIDED WIRE LOCALIZATION LEFT BREAST: 05/16/2022 CLINICAL: Left wire loc. Correlation is made to exams dated: 05/12/2022 ultrasound - [facility], 04/25/2022 ultrasound biopsy, 04/25/2022 mammogram, 04/13/2022 ultrasound, 04/13/2022 mammogram, and 03/28/2022 mammogram - [facility]. A wire localization using digital mammography guidance was performed for the marker clip located in the left breast at 2 o'clock posterior depth. The skin was prepped in the usual manner. Local anesthetic was administered to the access site. The localization was approached from the craniocaudal aspect. A wire was inserted into the targeted area under digital mammography guidance. IMPRESSION: WIRE LOCALIZATION Wire localization for the marker clip in the left breast at 2 o'clock posterior depth was successful. This exam was interpreted at Station ID: [id number]. Caity Ansari M.D. fx/:05/16/2022 16:04:36 copy to: Ivon Franks
[2022-05-16] MEDS: LACTATED RINGERS 1,000 ML 42 ML IV (07:34)
--- NOTE | 2022-05-16 08:41 | PM.PREOP ---
Pre-operative Note COVID-19 COVID-19 status: Negative Interval Note History & Physical reviewed/Exam performed by Physician: Yes Changes to H&P: No
[2022-05-16] MEDS: CEFAZOLIN 2 GM/100 ML PREMIX 100 ML IV (09:30)
[2022-05-16] MEDS: BUPIVACAINE 0.5% W/ EPI (PF) 30 ML VIAL INJ (09:52)
--- NOTE | 2022-05-16 09:56 | SUR.OPER ---
Supine on padded OR bed, head on pillow, arms secured on padded arm boards at <90 degrees abduction, legs uncrossed, safety belt at thigh, tape over blanket over lower legs. Gel pad under bilateral arms.
--- NOTE | 2022-05-16 14:06 | P.OP_ITS ---
Operative Date/Time/Diagnoses Pre-op diagnosis: DCIS Post-op diagnosis: same Procedure & Clinicians Procedure: partial mastectomy with wire localization. Same procedure as scheduled: Yes Indications: Ms. Mackay presented with some calcifications on a screening mammogram that were biopsied and found to be DCIS. She presented to my office for evaluation. I discussed with her options for surgical treatment of DCIS and she wished to undergo partial mastectomy/breast conservation. She understands the risks benefits and alternatives including but not limited to the need to return to OR for further margins, the need to have a sentinel node biopsy if any if the specimen comes back with invasive cancer, bleeding infection or other issues. Surgeon: Mary Robles Click Yes if Unassisted: Yes Anesthesia Type: General Operative Notes Findings: Patient was taken to the operating room and placed supine on the operating room table time-out was performed preoperative antibiotics administered bilateral SCDs were in place and running. General anesthesia with an LMA was administered. The wire was taped down and carefully on taped. The left breast was prepped and draped in the usual sterile fashion. I could tell from the onset that the wire was skived. The tip of the wire being quite a bit lateral to where it entered the skin. I therefore made an incision slightly lateral to the location where the wire was protruding from the skin. I infused local anesthetic around the area prior to using a 10 blade scalpel to make an incision. Using electrocautery I extended the incision through the subcutaneous and breast tissues for approximately 3 cm at this time I began to shell out a cylindrical portion of the breast around where the tip of the wire would be. Due to the location of the lesion being fairly deep in the breast on the mammographies the done previously I planned to carry my biopsy all the way down to the chest wall. I reached the chest wall and removed the wire with the specimen. The posteriolateral portion of my specimen seemed to abut the wire. And therefore I sent an additional margin. The specimen was sent to the radiography department and the wire was seen but the biopsy clip was not. At this point I realized that the wire was likely not quite located at the location of the biopsy and that my excisional cavity likely needed to extend further in the posterior lateral direction, still keeping the posterior margin on the chest wall. I followed this trajectory and found the capsule of the biopsy specimen this was entered slightly and a red jelly like coagulated blood came out of it. And so, I fully encompassed the biopsy cavity and removed that specimen. I sent this additional specimen to the radiologist. Again no biopsy clip was seen. Next I took a more posterior portion adjacent to what had just been sent. Each of the specimens was marked with all 6 sides painted for orientation. Again no biopsy clip was seen on the radiogram. Finally, I removed any of the remaining lateral and medial tissue of the entire upper outer quadrant of the breast marked each with orientating paint, sent those to the radiologist and closed the defect. I used 3-0 Vicryl interrupted sutures to close the biopsy cavity the pectoralis muscle was at the base of the cavity. The skin was closed with a running 4-0 Monocryl the remainder of the local anesthetic was infused around the area the wound was dressed with Steri- Strips and fluff gauze and covered with a binder. Again no clip was seen in any of the radiographs. Patient tolerated the procedure well and went in good condition to the postoper ative care unit Specimen(s): other (Specimens:)
== END 2022-05-16 13:25 | disposition home or self-care (01) ==
PROVIDERS: PCP Physician Assistant; Referring Provider Surgery; Visit Provider Surgery
PROC: (CPT 19301; principal; 2022-05-16 09:15)
DX: D05.12 Intraductal carcinoma in situ of left breast (principal); Z17.0 Estrogen receptor positive status [ER+]
CPT/HCPCS: 19301; 19281; 76098; C1819; J0690; J1170; J2405; J2704; J3010

== ENCOUNTER → 2022-06-15 07:44 | Outpatient (CLI) | payer MEDICARE, OTHER, SELFPAY ==
[2022-06-15 21:22] LABS: COVID19 - ORCAS (NP or Nasal) Negative (Negative)
== END ==
PROVIDERS: PCP Physician Assistant; Visit Provider Physician Assistant
DX: Z20.822 Contact with and (suspected) exposure to COVID-19 (principal); Z01.812 Encounter for preprocedural laboratory examination
CPT/HCPCS: C9803; U0003

== ENCOUNTER 2022-06-16 12:22 | Day surgery (SDC) | payer MEDICARE, OTHER, SELFPAY ==
[2022-06-15 12:52] VITALS: BMI 22.4
[2022-06-16] VITALS (11 sets, daily range): BP systolic 175–221; BP diastolic 82–95; PULSE 62–66; RESP 9–16; TEMP 36.1–36.8; O2SAT 96–100; BMI 21.7
--- NOTE | 2022-06-16 | PATH_ITS ---
[facility] [place] Accession Number: [id number] . 01 Material submitted: . breast - LEFT BREAST . 01 Clinical history: . LEFT BREAST ADDITIONAL ANTERIOLATERAL MARGIN, RE-EXCISIONAL LUMPECTOMY (SPECIMEN PAINTED WITH MARGIN MARKER) . 01 Diagnosis: A. Left Breast, Excisional Biopsy: No evidence of residual carcinoma in situ, including examination of all margins. Prior excision/procedural cavity site changes with associated hemorrhage, fat necrosis, extensive histiocytic inflammation with foreign body giant cell reaction, and hematoidin deposition. Background breast parenchyma with columnar cell change/columnar cell hyperplasia, focal usual ductal hyperplasia, microcystic duct dilatation, small incidental papilloma (0.5 mm), and scattered microcalcifications. Negative for atypia and malignancy. MRV 06/20/2022 1709 Local . 01 Electronically signed: . Ayla Childs MD, Pathologist NPI- [id number] . 01 Gross description: . The specimen is received fresh and subsequently placed in formalin per Dr. Luke Trammell, labeled with the patient's name, , and additional L breast anteriolateral margin. . Specimen: Previously inked, oriented left lumpectomy specimen. Weight: 23 g. Measurement: 2.2 cm anterior to posterior, 5.1 cm medial to lateral, and 5.4 cm superior to inferior. Skin ellipse: Absent. Wire: Absent. Margins: Inked by surgeon as follows: Anterior-green, inferior-blue, lateral-orange, medial-yellow, posterior-black, superior-red. Ink is reinforced at the bench. Sliced: From superior to inferior into ten 3-mm slices. Lesion: One lesion. Lesion #1: Description: Ill-defined, pale yellow, firm, linear lesion possibly consistent with previous resection cavity. Size: 5.4 x 3.7 x 0.3 cm. Slices involved: All slices, 1-10. Biopsy site: Not identified. Distance to margins: Grossly approaches the black, orange, red, and blue margins, 0.3 cm from the green margin and 0.3 cm from the yellow margin. Other: The remaining cut surfaces are yellow to white fibroadipose tissue with fibrous tissue occupying less than 10% of the cut surface. No additional lesions are identified. Fixation time: The specimen was removed on 06/16/22. Time not provided. The specimen was sent without fixative. Fixative was added on 06/17/22 at 0815 giving a cold ischemic time exceeding 1 hour and a total fixation time of 30 hours. The specimen is submitted entirely as follows: A1-A2: Slice 1 superior margin perpendicular. A3-A4: Composite slice 2 to include black, green, orange, and yellow margins. A5-A6: Composite slice 3 to include black, green, orange, and yellow margins. A7-A8: Composite slice 4 to include black, green, orange, and yellow margins. A9-A10: Composite slice 5 to include black, green, orange, and yellow margins. A11-A12: Composite slice 6 to include black, green, orange, and yellow margins. A13-A14: Composite slice 7 to include black, green, orange, and yellow margins. A15-A16: Composite slice 8 to include black, green, orange, and yellow margins. A17-A18: Composite slice 9 to include black, green, orange, and yellow margins. A19-A22: Slice 10 inferior margin perpendicular. ([id number]) /FRR 06/20/2022 [facility]9 Local . 01 Pathologist provided ICD-10: D05.12 . 01 CPT . 575027 Specimen Comment: A courtesy copy of this report has been sent to [facility] Performed at: 01 [facility] [address] [place] [address], [place], [place] [id number] MD Shane Trammell MD Phone: [phone]
--- NOTE | 2022-06-16 13:56 | SUR.PREOP ---
Patient checked in at requested time of 12:30 for Pre-op. Surgeon delayed by at least an hour due to prolonged other cases. Advised patient of delay. Patient desiring to stay in waiting room with due to delay. V/U.
--- NOTE | 2022-06-16 14:00 | SUR.PREOP ---
Patient still in waiting room due to continued delay of Dr Robles. Apologized for delay.
[2022-06-16] MEDS: LACTATED RINGERS 1,000 ML 42 ML IV (14:35)
--- NOTE | 2022-06-16 15:15 | P.HP_ITS ---
History of Present Illness History of Present Illness Chief complaint: [facility] [place] Narrative: Ms. Holly Cadena presents today for re-excision of margins. 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 I discussed with her the risks benefits and alternatives and she would like to proceed with a re- excision of positive margins. Patient History Medical History (Updated 06/16/22 @ 15:27 by Mary Rolbes MD) BCC (basal cell carcinoma), eyelid Bronchitis, not specified as acute or chronic Chicken pox Cough Glaucoma Hormone replacement therapy (HRT) Measles Mumps Osteoporosis screening Ovarian cyst (~04/2019) Primary open angle glaucoma Scoliosis Skin cancer, basal cell (~11/2011) Surgical History (Updated 06/15/22 @ 13:00 by Lizzy Conteh RN) Anesthesia History of bilateral tubal ligation History of hysterectomy (~08/2019) History of surgery (~08/08/18) Hx of partial mastectomy (05/16/22) Laceration of left eyebrow Status post tubal ligation (1974) Family & Social History Family History Father Pneumonia Mother History of heart disease Brother Brain aneurysm Grandmother History of heart disease Social History: household members spouse Tobacco & Substance use: Smoking Status Never smoker alcohol intake never Substance Use Type does not use Meds Home Medications and Allergies Home Medications Medication Instructions Recorded Confirmed Type latanoprost 0.005 % eye drops 1 drp EYE-BOTH .HS 05/22/19 06/16/22 History timolol 0.25 % eye drops 1 drp EYE-BOTH DAILY 12/01/20 06/16/22 History olmesartan 20 mg tablet 20 mg PO DAILY 06/16/22 06/16/22 History Allergies Allergy/AdvReac Type Severity Reaction Status Date / Time No Known Drug Allergies Allergy Verified 06/16/22 14:12 Exam Vital Signs (past 8 hours): - 06/16/22 14:27 06/16/22 14:33 Temperature 98.3 F Pulse Rate 63 Respiratory Rate 12 Blood Pressure 216/86 H 221/95 H Pulse Oximetry 99 Oxygen Delivery Method Room Air Oxygen Delivery Method Room Air Const General: cooperative, healthy appearing and comfortable HENWV Head: normal to inspection Eyes General: appearance normal, both eyes and all related structures Resp Effort & Inspection: normal respiratory effort and able to speak in complete sentences Cardio Pulses: radial pulses present GI Palpation: soft and No tender Skin Other: Skin overlying the breast has ecchymoses. 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 Kim with multidisciplinary team. I have also discussed procedure of re-excision of margins with the patient who understands fully the risks benefits and alternatives to re-excision of margins and would like to proceed. Assessment & Plan narrative: I discussed the risks benefits and alternatives of re-excision of margins. Ms. Mackay's case has also been discussed with the multidisciplinary team. She understands the risks and the benefits and would like to proceed. Time Spent With Patient Critical Care time: I spent a total of [] minutes of critical care time on this patient's care today; this time is exclusive of procedural time.
[2022-06-16] MEDS: CEFAZOLIN 2 GM/100 ML PREMIX 100 ML IV (15:35)
--- NOTE | 2022-06-16 15:46 | SUR.OPER ---
Supine on padded OR bed, head on pillow, arms secured on padded arm boards at <90 degrees abduction, legs uncrossed, safety belt at thigh, tape over blanket over lower legs.
[2022-06-16] MEDS: BUPIVACAINE 0.5% W/ EPI (PF) 30 ML VIAL INJ (15:49)
--- NOTE | 2022-06-16 16:44 | P.OP_ITS ---
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 Surgeon: Mary Robles Click Yes if Unassisted: Yes Anesthesia Type: General Operative Notes Procedure in detail: Patient was taken to the operating room and placed supine in the operating room table a time-out was performed. Bilateral SCDs were placed. General endotracheal anesthesia was induced. Preoperative antibiotics were administered. The area of the left breast was prepped and draped in the usual sterile fashion. First bupivacaine with epinephrine was infused prior to incision. An incision was made through the prior previous scar. And carried down into the biopsy cavity. The large amounts of hematoma were evacuated and irrigated with saline and suction. The biopsy cavity was inspected at that time. The incision was extended laterally at this time. An additional anterio- lateral margin was shaved from the biopsy cavity. This specimen was marked with paints: Green anterior, blue inferior, orange lateral, yellow medial, black posterior, red superior. The wound was inspected for hemostasis. Next 3-0 Vicryl sutures were used in interrupted fashion to close the biopsy cavity as much as possible. The skin was closed with a running Monocryl, and dressed with a Steri-Strip, a pressure dressing and binder. Patient tolerated the procedure well and went in good condition to the postoperative care unit. Complications: none Post-operative Condition: stable Disposition: PACU
[2022-06-16] MEDS: OXYCODONE IR 5 MG TABLET PO (16:59)
[2022-06-16] MEDS: HYDRALAZINE 20 MG/ML VIAL 2.5 MG IV ×3 (17:27→17:54)
--- NOTE | 2022-06-16 18:16 | SUR.PHASEII ---
patient ambulated to wheelchair without difficulty. tolerated po. provided written/verbal discharge instructions and patient stated understanding. patient had very high SBP 190's to 200's. HR 66. Called Dr ashraf. Ordered to give Hydralazine. Patient ended up received 17.5mg with very little change in SBP. Patient needed to catch the 630pm ferry to [facility] and was anxious to leave. discharged patient at 18:07. patient alert and oriented x4. denied dizziness, sob and cp. Instructed patient to check BP when arriving home and to contact her primary doctor to discuss her HTN. discharged patient by wheelchair to private vehicle in stable condition.
== END 2022-06-16 18:07 | disposition home or self-care (01) ==
PROVIDERS: PCP Physician Assistant; Referring Provider Surgery; Visit Provider Surgery
PROC: (CPT 19301; principal; 2022-06-16 13:45)
DX: D05.12 Intraductal carcinoma in situ of left breast (principal)
CPT/HCPCS: 19301; J0360; J0690; J1100; J2405; J2704; J3010

== ENCOUNTER → 2023-08-14 10:55 | Outpatient (CLI) | payer MEDICARE, OTHER, SELFPAY ==
[2023-08-14 19:35] LABS: Add Manual Diff / Slide Review NO; Basophils Absolute Auto 100 /uL (0-100); Basophils Percent Auto 0.9 % (0-2); Eosinophils Absolute Auto 100 /uL (0-450); Eosinophils Percent Auto 1.6 % (2-4); Hematocrit 38.2 % (36-46); Hemoglobin 12.5 g/dL (12.0-16.0); Lymphocytes Absolute Auto 1000 /uL (1100-4500); Lymphocytes Percent Auto 14.2 % (25-40); Mean Corpuscular HGB Conc 32.6 % (30-36); Mean Corpuscular Hemoglobin 22.1 PG (26-34); Mean Corpuscular Volume 67.7 fL (80-100); Monocytes Absolute Auto 900 /uL (0-900); Neutrophils Absolute Auto 5000 /uL (1500-7000); Neutrophils Percent Auto 70.3 % (50-75); Platelet Count 284 X10^3/uL (150-400); Red Blood Cell Count 5.65 X10^6/uL (4.0-5.2)
[2023-08-14 19:52] LABS: Alanine Aminotransferase 19 IU/L (<35); Albumin 4.3 g/dL (3.5-5.0); Albumin Globulin Ratio 1.4 (1.0-2.8); Alkaline Phosphatase 71 U/L (38-126); Aspartate Aminotransferase 31 IU/L (14-36); BUN Creatinine Ratio 23.6 (6-22); Bilirubin Total 0.5 mg/dL (0.2-1.3); Blood Urea Nitrogen 17 mg/dL (7-17); Calcium 9.7 mg/dL (8.4-10.2); Carbon Dioxide 28 mmol/L (22-32); Chloride 95 mmol/L (98-107); Estimated Glomerular Filt Rate > 60 mL/min (>60); Glucose 90 mg/dL (80-110); HEMOLYSIS < 15 (0-50); Potassium 4.7 mmol/L (3.4-5.1); Sodium 130 mmol/L (137-145); Total Protein 7.3 g/dL (6.3-8.2)
[2023-08-14 19:59] LABS: Anisocytosis 1+; Hypochromasia 1+; Microcytosis 2+; Target Cells 1+
[2023-08-14 20:02] LABS: LDL Cholesterol Direct 101 mg/dL (<100)
== END ==
PROVIDERS: PCP Family Medicine; Visit Provider Family Medicine
DX: R79.89 Other specified abnormal findings of blood chemistry (principal); E87.1 Hypo-osmolality and hyponatremia; I10 Essential (primary) hypertension
CPT/HCPCS: 80053; 83721; 85025

== ENCOUNTER → 2024-02-14 10:49 | Outpatient (CLI) | payer MEDICARE, OTHER, SELFPAY ==
[2024-02-15 01:10] LABS: Alanine Aminotransferase 20 IU/L (<35); Albumin 4.7 g/dL (3.5-5.0); Albumin Globulin Ratio 1.5 (1.0-2.8); Alkaline Phosphatase 93 U/L (38-126); Aspartate Aminotransferase 35 IU/L (14-36); BUN Creatinine Ratio 25.7 (6-22); Bilirubin Total 0.6 mg/dL (0.2-1.3); Blood Urea Nitrogen 19 mg/dL (7-17); Calcium 9.6 mg/dL (8.4-10.2); Carbon Dioxide 26 mmol/L (22-32); Chloride 98 mmol/L (98-107); Estimated Glomerular Filt Rate > 60 mL/min (>60); Globulin 3.2 g/dL (1.7-4.1); Glucose 80 mg/dL (80-110); HEMOLYSIS < 15 (0-50); Potassium 4.8 mmol/L (3.4-5.1); Sodium 129 mmol/L (137-145); Total Protein 7.9 g/dL (6.3-8.2)
== END ==
PROVIDERS: PCP Family Medicine; Visit Provider Family Medicine
DX: E87.1 Hypo-osmolality and hyponatremia (principal); I10 Essential (primary) hypertension
CPT/HCPCS: 80053

== ENCOUNTER → 2024-05-06 10:51 | Outpatient (CLI) | payer MEDICARE, OTHER, SELFPAY ==
[2024-05-06 19:53] LABS: BUN Creatinine Ratio 29.4 (6-22); Blood Urea Nitrogen 20 mg/dL (7-17); Calcium 9.4 mg/dL (8.4-10.2); Carbon Dioxide 29 mmol/L (22-32); Chloride 94 mmol/L (98-107); Estimated Glomerular Filt Rate > 60 mL/min (>60); Glucose 87 mg/dL (80-110); HEMOLYSIS 37 (0-50); Potassium 4.9 mmol/L (3.4-5.1); Sodium 129 mmol/L (137-145)
== END ==
PROVIDERS: PCP Family Medicine; Visit Provider Family Medicine
DX: E87.1 Hypo-osmolality and hyponatremia (principal)
CPT/HCPCS: 80048

== ENCOUNTER → 2024-07-24 13:29 | Outpatient (CLI) | payer MEDICARE, OTHER, SELFPAY ==
[2024-07-24 20:32] LABS: Alanine Aminotransferase 22 IU/L (<35); Albumin 4.3 g/dL (3.5-5.0); Albumin Globulin Ratio 1.3 (1.0-2.8); Alkaline Phosphatase 97 U/L (38-126); Aspartate Aminotransferase 38 IU/L (14-36); Bilirubin Total 0.4 mg/dL (0.2-1.3); Blood Urea Nitrogen 18 mg/dL (7-17); Calcium 9.6 mg/dL (8.4-10.2); Carbon Dioxide 28 mmol/L (22-32); Chloride 97 mmol/L (98-107); Estimated Glomerular Filt Rate > 60 mL/min (>60); Globulin 3.2 g/dL (1.7-4.1); Glucose 94 mg/dL (80-110); HEMOLYSIS < 15 (0-50); Potassium 4.6 mmol/L (3.4-5.1); Sodium 129 mmol/L (137-145); Total Protein 7.5 g/dL (6.3-8.2)
[2024-07-24 20:54] LABS: Thyroid Stimulating Hormone 2.17 uIU/mL (0.47-4.68)
== END ==
PROVIDERS: PCP Family Medicine; Visit Provider Family Medicine
DX: E87.1 Hypo-osmolality and hyponatremia (principal); I10 Essential (primary) hypertension
CPT/HCPCS: 80053; 84443

== ENCOUNTER → 2024-09-01 10:51 | Outpatient (CLI) | payer MEDICARE, OTHER, SELFPAY ==
[2024-09-01 19:39] LABS: Blood Urea Nitrogen 20 mg/dL (7-17); Calcium 9.4 mg/dL (8.4-10.2); Carbon Dioxide 29 mmol/L (22-32); Chloride 91 mmol/L (98-107); Estimated Glomerular Filt Rate > 60 mL/min (>60); Glucose 118 mg/dL (80-110); HEMOLYSIS < 15 (0-50); Potassium 5.1 mmol/L (3.4-5.1); Sodium 126 mmol/L (137-145)
[2024-09-03 17:11] LABS: Free Kappa Lt Chains, Serum 23.5 mg/L (3.3-19.4); Free Lambda Lt Chains,Serum 22.9 mg/L (5.7-26.3)
[2024-09-04 14:12] LABS: Albumin 3.5 g/dL (2.9-4.4); Alpha-1-Globulin 0.3 g/dL (0.0-0.4); Alpha-2-Globulin 0.9 g/dL (0.4-1.0); Gamma Globulin 1.4 g/dL (0.4-1.8); Globulin Total 3.5 g/dL (2.2-3.9); Immunoglobulin A, Serum 240 mg/dL (64-422); Immunoglobulin G,Serum 1196 mg/dL (586-1602); Immunoglobulin M, Serum 55 mg/dL (26-217)
== END ==
PROVIDERS: PCP Family Medicine; Visit Provider Family Medicine
DX: E87.1 Hypo-osmolality and hyponatremia (principal); R42 Dizziness and giddiness; W19.XXXA Unspecified fall, initial encounter; M25.572 Pain in left ankle and joints of left foot
CPT/HCPCS: 80048; 82784; 83883; 84155; 84165; 86334

== ENCOUNTER → 2024-10-09 09:17 | Outpatient (CLI) | payer MEDICARE, OTHER, SELFPAY ==
[2024-10-09 19:27] LABS: Alanine Aminotransferase 19 IU/L (<35); Albumin 4.5 g/dL (3.5-5.0); Albumin Globulin Ratio 1.5 (1.0-2.8); Alkaline Phosphatase 119 U/L (38-126); Aspartate Aminotransferase 35 IU/L (14-36); BUN Creatinine Ratio 26.1 (6-22); Bilirubin Total 0.6 mg/dL (0.2-1.3); Bilirubin Unconjugated 0.4 mg/dL (0.0-1.1); Blood Urea Nitrogen 18 mg/dL (7-17); Calcium 9.3 mg/dL (8.4-10.2); Carbon Dioxide 26 mmol/L (22-32); Chloride 97 mmol/L (98-107); Cholesterol 239 mg/dL (140-199); Estimated Glomerular Filt Rate > 60 mL/min (>60); Globulin 3.1 g/dL (1.7-4.1); Glucose 95 mg/dL (80-110); HDL Cholesterol 83 mg/dL (40-60); HEMOLYSIS < 15 (0-50); LDL Cholesterol Calculated 132 mg/dL (<100); Potassium 4.6 mmol/L (3.4-5.1); Sodium 131 mmol/L (137-145); Total Protein 7.6 g/dL (6.3-8.2); Triglycerides 121 mg/dL (35-150); Uric Acid 3.7 mg/dL (2.5-6.2)
[2024-10-09 19:36] LABS: NT-proBNP (BNP-Adult 18+) 441 pg/mL (<450)
[2024-10-09 19:53] LABS: Thyroid Stimulating Hormone 2.46 uIU/mL (0.47-4.68)
[2024-10-09 19:56] LABS: Sodium Urine Random 92 mmol/L (30-90)
[2024-10-09 19:58] LABS: Appearance Urine UA CLEAR; Bilirubin Urine UA NEGATIVE (NEGATIVE); Color Urine UA YELLOW; Glucose Urine UA NEGATIVE (Negative); Ketones Urine UA NEGATIVE (NEGATIVE); Leukocyte Esterase Urine UA TRACE (NEGATIVE); Nitrite Urine UA NEGATIVE (Negative); Occult Blood Urine UA NEGATIVE (Negative); Protein Urine UA NEGATIVE (Negative); Specific Gravity Urine UA 1.015 (1.000-1.035); Urobilinogen Urine UA 0.2 E.U./dL (0.2)
[2024-10-09 20:01] LABS: Urine Volume 10mL (spun); pH Urine UA 7.5 (4.5-8.0)
[2024-10-09 20:05] LABS: Amorphous Sediment Urine 3+; Bacteria Urine Moderate (10-30); Culture Indicated Urine Specimen Cultured; RBC Urine None Seen (0-5/HPF); Squamous Epithelial Cell Urine 0-1 /HPF (0-5/HPF); Transitional Epi Cells Urine 0-1/HPF (0-5/HPF); WBC Urine 0-1/HPF (0-5/HPF)
[2024-10-13 17:36] LABS: Osmolality Urine 427 mOsmol/kg (.)
[2024-10-13 18:17] LABS: Osmolality, Serum 278 mOsmol/kg (280-301)
== END ==
PROVIDERS: PCP Family Medicine; Visit Provider Internal Medicine Nephrology
DX: E87.1 Hypo-osmolality and hyponatremia (principal)
CPT/HCPCS: 80048; 80061; 80076; 81001; 82088; 82533; 83880; 83930; 83935; 84244; 84300; 84443; 84550; 87086

== ENCOUNTER → 2024-11-04 14:15 | Outpatient (CLI) | payer MEDICARE, OTHER, SELFPAY ==
[2024-11-04 19:51] LABS: Hemoglobin 11.8 g/dL (12.0-16.0); Mean Corpuscular Hemoglobin 21.6 PG (26-34); Mean Corpuscular Volume 67.3 fL (80-100); Platelet Count 305 X10^3/uL (150-400); Red Blood Cell Count 5.49 X10^6/uL (4.0-5.2); Red Cell Distribution Width 15.5 % (11.6-14.8); White Blood Cell Count 6.1 X10^3/uL (4.5-11.0)
[2024-11-04 20:05] LABS: Blood Urea Nitrogen 20 mg/dL (7-17); Calcium 9.6 mg/dL (8.4-10.2); Carbon Dioxide 29 mmol/L (22-32); Chloride 94 mmol/L (98-107); Estimated Glomerular Filt Rate > 60 mL/min (>60); Glucose 98 mg/dL (80-110); HEMOLYSIS < 15 (0-50); Potassium 4.6 mmol/L (3.4-5.1); Sodium 131 mmol/L (137-145)
[2024-11-04 21:08] LABS: Neutrophils Absolute Manual 3477 /uL (3000-5900); Total Cells Counted 100
[2024-11-04 21:09] LABS: Hypochromasia 1+; Microcytosis 2+; Platelet Estimate Adequate on smear
== END ==
PROVIDERS: PCP Family Medicine; Visit Provider Family Medicine
DX: I10 Essential (primary) hypertension (principal); E87.1 Hypo-osmolality and hyponatremia; Z85.3 Personal history of malignant neoplasm of breast; R71.8 Other abnormality of red blood cells
CPT/HCPCS: 80048; 85025

== ENCOUNTER → 2025-03-17 10:54 | Outpatient (CLI) | payer MEDICARE, OTHER, SELFPAY ==
[2025-03-17 19:33] LABS: Hematocrit 38.7 % (36-46); Hemoglobin 12.6 g/dL (12.0-16.0); Mean Corpuscular HGB Conc 32.5 % (30-36); Mean Corpuscular Hemoglobin 21.8 PG (26-34); Mean Corpuscular Volume 67.1 fL (80-100); Platelet Count 283 X10^3/uL (150-400)
[2025-03-17 19:48] LABS: HEMOLYSIS 17 (0-50); Iron 112 ug/dL (37-170)
[2025-03-17 19:54] LABS: Blood Urea Nitrogen 13 mg/dL (7-17); Calcium 9.2 mg/dL (8.4-10.2); Carbon Dioxide 30 mmol/L (22-32); Chloride 94 mmol/L (98-107); Estimated Glomerular Filt Rate > 60 mL/min (>60); Glucose 88 mg/dL (70-99); HEMOLYSIS 17 (0-50); Potassium 4.7 mmol/L (3.4-5.1); Sodium 130 mmol/L (137-145)
[2025-03-17 20:01] LABS: Percent Iron Saturation 37 % (15-50); Total Iron Binding Capacity 299 ug/dL (265-497); Transferrin 252 mg/dL (206-381)
[2025-03-17 20:27] LABS: Ferritin 94 ng/mL (11-264)
[2025-03-17 20:32] LABS: Band Neutrophils Percent 1.0 % (3-7); Eosinophils Percent Manual 2.0 % (2-4); Lymphocytes Percent Manual 27.0 % (25-45); Monocytes Percent Manual 12.0 % (2-11); Neutrophils Absolute Manual 3658 /uL (3000-5900); Segmented Neutrophils Percent 58.0 % (38-70); Total Cells Counted 100
[2025-03-17 20:33] LABS: Anisocytosis 1+; Hypochromasia 1+; Microcytosis 2+; Ovalocytes 1+; Stomatocytes 1+; Target Cells 1+; Tear Drop Cells 1+; Toxic Vacuolation Present
[2025-03-17 20:34] LABS: Burr Cells 1+
[2025-03-17 20:55] LABS: Folate 12.6 ng/mL (2.76-20.0); Vitamin B12 981 pg/mL (239-931)
== END ==
PROVIDERS: PCP Family Medicine; Visit Provider Family Medicine
DX: D64.9 Anemia, unspecified (principal); E87.1 Hypo-osmolality and hyponatremia
CPT/HCPCS: 80048; 82607; 82728; 82746; 83540; 83550; 85025